=== PATIENT | female | born 1960 | race Two or more races ===

== ENCOUNTER 2020-08-07 11:19 | Outpatient (CLI) | payer OTHER | END 2020-08-07 11:30 | disposition home or self-care (01) | LOC: RAD 11:19 | PROVIDERS: ATTEND Orthopaedic Surgery | DX: M25.762 Osteophyte, left knee (principal); M17.0 Bilateral primary osteoarthritis of knee; Z76.89 Persons encountering health services in other specified circumstances; Z96.643 Presence of artificial hip joint, bilateral; M79.651 Pain in right thigh; M79.604 Pain in right leg ==